=== PATIENT | female | born 1975 | race African-American/Black ===

== ENCOUNTER 2016-10-23 14:19 | Inpatient (IN) ==
--- NOTE | 2016-10-23 18:34 | Emergency Department Note ---
Disposition Clinical Impression: Shortness of breath Disposition: Still a Patient Condition: Undetermined Referrals: Dago Milton DO [Primary Care Provider] - Forms: ED Satisfaction Letter Time of Disposition: 19:03 General Adult HPI - General Chief complaint: ED Recheck/Abnormal Lab/Rx Stated complaint: abnormal labs per PCP Time Seen by Provider: 10/23/16 18:11 Source: patient Mode of arrival: ambulatory Limitations: no limitations Nursing Notes Reviewed: Yes Vital Signs Reviewed: Yes - History of Present Illness HPI Narrative: Mr. Mercedes is a 41 year old female sent to the ED by PCP for abnormal lab. Patient reports one week of shortness of breath, dry mouth, fatigue, nausea, increased urination, increased thirst, burning with urination, decreased appetite, weight loss. She reports history of asthma for which she is on Advair , she is also supposed to be on the Ventolin inhaler but currently having issues with insurance. PMHx also includes hypertension, 192/132 in the ED, she takes metoprolol and losartan. Patient notes that she has been out of losartan for 2 weeks. Patient denies history of diabetes, noting elevated glucose once that resolved, though bloodwork today HGB A1C 11.5. Patient denies any medication for glucose control. Labs today also noted patient to have an elevated white count at 14.5 and a low bicarb at 8. Patient notes recent travel [id number], denies symptoms prior to travel. Patient denies vomiting, fever, blood in urine or stool. Pt Subjective Complaint: shortness of breath, fatigue Onset (ago): day(s) Pain Scale: 0 Associated symptoms: Reports: loss of appetite, nausea/vomiting, shortness of breath Treatments Prior to Arrival: other (singulair, advair) - Related Data Home Medications Medication Instructions Recorded Confirmed Albuterol Inhaler 06/09/15 06/09/15 Lorsartan 06/09/15 06/09/15 Metoprolol 06/09/15 06/09/15 Advair 100-50 Diskus 09/05/16 Augmentin 09/05/16 Flonase 09/05/16 09/05/16 Previous Rx's Medication Instructions Recorded Cefdinir [Omnicef] 300 mg PO BID #20 capsule 09/05/16 Ibuprofen [Motrin] 800 mg PO Q8HR PRN #20 tablet 09/05/16 Meclizine [Antivert] 12.5 mg PO TID PRN #10 tablet 09/05/16 Magnus/Poly/HC *EAR* SOLN 4 drop RIGHT EAR QID 7 Days 09/05/16 [Cortisporin *EAR* SOLN] PredniSONE 5 mg PO DAILY 12 Days 09/05/16 Allergies Allergy/AdvReac Type Severity Reaction Status Date / Time shellfish derived Allergy Swelling Verified 10/23/16 14:31 of Lip/Tongue/Throat Sulfa (Sulfonamide Allergy Hives Verified 10/23/16 14:30 Antibiotics) All systems ED: reviewed and negative except as stated. Constitutional: Reports: weight change Cardiovascular: Denies: chest pain, palpitations, edema Respiratory: Reports: dyspnea Gastrointestinal: Reports: nausea. Denies: abdominal pain, vomiting, diarrhea, constipation, melena, hematochezia Genitourinary: Reports: urgency, dysuria (burning), frequency Endocrine: Reports: fatigue, polydipsia, polyuria Past Medical History - Past Medical History Attestation: Yes The following information was validated with the patient. Source: patient, old records reviewed Medical history: Reports: asthma, hypertension, RA, other - Social History Smoking Status: Never smoker Smokeless Tobacco Status: No Alcohol use: Reports: occasionally Drug use: Reports: none Physical Exam - General Limitations: no limitations General appearance: alert - Head Head exam: atraumatic, normocephalic - Eye Eye exam: Present: normal appearance, EOMI - ENT ENT exam: normal exam, mucous membranes moist - Neck Neck exam: Present: normal inspection, full ROM - Chest Chest inspection: Present: normal inspection, symmetric chest wall rise - Respiratory Respiratory exam: Present: normal lung sounds bilaterally. Absent: wheezes, stridor - Cardiovascular Cardiovascular exam: Present: tachycardia, +S1, +S2 - Abdominal Exam Abdominal exam: Present: soft, Non-Tender, normal bowel sounds. Absent: distention, guarding, rebound - Extremities Exam Extremities exam: Present: normal inspection, full ROM. Absent: tenderness, pedal edema - Neurological Exam Neurological exam: Present: alert, oriented X3 - Psychiatric Psychiatric exam: Present: normal affect, normal mood - Skin Skin exam: Present: warm, dry, intact Course Vital Signs Temperature 97.8 F 10/23/16 14:27 Pulse Rate 114 10/23/16 14:27 Respiratory Rate 20 10/23/16 14:27 Blood Pressure 192/134 10/23/16 14:27 O2 Sat by Pulse Oximetry 97 10/23/16 14:27 Temperature 97.8 F 10/23/16 14:27 Pulse Rate 109 10/23/16 18:23 Respiratory Rate 16 10/23/16 18:23 Blood Pressure 198/120 10/23/16 18:23 O2 Sat by Pulse Oximetry 99 10/23/16 18:23 Oxygen Delivery Oxygen Delivery Room Air Medical Decision Making - Medical Records Medical records reviewed: Yes I reviewed the patient's medical records. - Lab Data Lab results reviewed: Yes I reviewed the patient's lab results. Result diagrams: 10/23/16 18:47 Lab Results 10/23/16 Range/Units 18:47 WBC 15.0 H (4.3-11.1) K/mcL RBC 5.49 H (3.82-4.97) M/mcL Hgb 12.8 (11.5-15.4) g/dL Hct 40.2 (35.3-44.9) % MCV 73.2 L (83.0-100.0) fL MCH 23.3 L (28.0-33.3) pg MCHC 31.8 (31.6-35.5) g/dL RDW 18.7 H (11.5-14.5) % Plt Count 404 H (140-400) K/mcL MPV 10.8 (9.4-12.4) fL Immature Gran % 0.8 (0-4) % Seg Neutrophils % 71.8 % Lymphocytes % 17.7 % Monocytes % 8.6 % Eosinophils % 0.6 % Basophils % 0.5 % Neutrophils # 10.8 H (1.6-8.9) K/mcL Lymphocytes # 2.7 (0.6-4.6) K/mcL Monocytes # 1.3 (0.0-1.3) K/mcL Eosinophils # 0.1 (0.0-0.6) K/mcL Basophils # 0.1 (0.0-0.2) K/mcL - EKG Data EKG #1 EKG attestation: Yes I reviewed and interpreted this EKG. EKG shows normal: sinus rhythm Rate: tachycardia When compared to previous EKG there are: previous EKG unavailable
[2016-10-23] MEDS ORDERED: Ipratropium/Albuterol Neb 3 ML IH ONE (18:39)
[2016-10-23 18:53] LABS: Eosinophils % 0.6 %; Hematocrit 40.2 % (35.3-44.9); Hemoglobin 12.8 g/dL (11.5-15.4); Immature Granulocytes % 0.8 % (0-4); Lymphocytes % 17.7 %; Mean Corpuscular HGB Conc 31.8 g/dL (31.6-35.5); Mean Corpuscular Hemoglobin 23.3 pg (28.0-33.3); Mean Corpuscular Volume 73.2 fL (83.0-100.0); Mean Platelet Volume 10.8 fL (9.4-12.4); Monocytes % 8.6 %; Platelet Count 404 K/mcL (140-400); Red Blood Count 5.49 M/mcL (3.82-4.97); Red Cell Distribution Width 18.7 % (11.5-14.5); Segmented Neutrophils % 71.8 %
[2016-10-23 18:54] LABS: Basophils # 0.1 K/mcL (0.0-0.2); Basophils % 0.5 %; Eosinophils # 0.1 K/mcL (0.0-0.6); Lymphocytes # 2.7 K/mcL (0.6-4.6); Monocytes # 1.3 K/mcL (0.0-1.3); Neutrophils # 10.8 K/mcL (1.6-8.9)
[2016-10-23 19:06] LABS: BUN/Creatinine Ratio 7 (6-26); Blood Urea Nitrogen 8 mg/dL (7-20); Calcium 9.8 mg/dL (8.6-10.8); Carbon Dioxide 12 mEq/L (19-29); Chloride 104 mEq/L (98-109); Osmolality,Calculated 305 (280-300); Sodium 134 mEq/L (136-145); eGFR For African Americans 59 (> 60); eGFR For Non-African Americans 48 (> 60)
[2016-10-23 19:16] LABS: Potassium 3.3 mEq/L (3.5-4.5)
[2016-10-23 19:18] LABS: Glucose 607 mg/dL (70-99)
[2016-10-23] MEDS ORDERED: 0.9 % Sodium Chloride 1,000 ML IVC ONE (19:24)
[2016-10-23 19:38] LABS: Beta-Hydroxybutyric Acid > 2.00 mmol/L (0.02-0.27)
[2016-10-23 19:47] LABS: ABG Base Excess -11.4 mEq/L (-2.0 to 3.0); ABG HCO3 12.4 mEQ/L (21-27); ABG Oxygen Saturation 97 % (95-98); ABG PCO2 23 mmHg (35-45); ABG PH 7.34 pH Units (7.32-7.45); ABG PO2 94 mmHg (85-104); ABG TCO2 13.1 mEq/L (20-26)
[2016-10-23 19:47] LABS: Bilirubin,Urine Negative (Negative); Blood,Urine Negative (Negative); Clarity,Urine Clear (Clear); Color,Urine Yellow (Yellow); Glucose,Urine (UA) >=1000 mg/dL (Normal); Ketones,Urine 40 mg/dL (Negative); Leukocyte Esterase,Urine Negative (Negative); Nitrite,Urine Negative (Negative); Protein,Urine Negative (Neg-Trace); Specific Gravity,Urine > 1.030 (1.010-1.025); Urobilinogen,Urine Normal (Normal)
[2016-10-23 19:49] LABS: Blood Gas FiO2 21 %
[2016-10-23] MEDS: 0.9 % Sodium Chloride 1,000 ML IVC SCH ×2 (21:08→22:29)
[2016-10-23] MEDS ORDERED: *HR* Dextrose 50 % in Water (Syg) 50 ML SYRINGE IVP PRN ×2 (21:11→23:15)
[2016-10-23] MEDS ORDERED: Insulin Regular, Human 100 UNIT/ML IV ONE (21:11)
[2016-10-23] MEDS ORDERED: Insulin Human Regular 100 UNIT in 0.9 % Sodium Chloride 100 ML IVC SCH ×2 (21:15→23:15)
--- NOTE | 2016-10-23 21:17 | Emergency Department Note ---
Disposition Clinical Impression: Shortness of breath, KAILEE (acute kidney injury) DKA (diabetic ketoacidoses) Qualifiers: Diabetes mellitus type: other specified (including CANDELARIA) Diabetes mellitus complication detail: without coma Qualified Code(s): E13.10 - Other specified diabetes mellitus with ketoacidosis without coma Disposition: Admitted As Inpatient Condition: Fair Referrals: Dago Milton DO [Primary Care Provider] - Forms: ED Satisfaction Letter Time of Disposition: 21:19 General Adult HPI - General Chief complaint: ED Recheck/Abnormal Lab/Rx Stated complaint: abnormal labs per PCP Time Seen by Provider: 10/23/16 18:11 Source: patient Mode of arrival: ambulatory Limitations: no limitations - History of Present Illness Pain Scale: 0 Associated symptoms: Reports: loss of appetite, nausea/vomiting, shortness of breath Treatments Prior to Arrival: other (singulair, advair) - Related Data Home Medications Medication Instructions Recorded Confirmed Adalimumab [Humira] 40 mg SQ Q2W 10/23/16 Albuterol Sulfate [Ventolin Hfa] 2 puff IH Q4H PRN 10/23/16 10/23/16 Fluticasone Propionate Nasal 50 mcg NS BID PRN 10/23/16 10/23/16 [Flonase] Losartan/Hydrochlorothiazide 1 each PO DAILY 10/23/16 10/23/16 [Hyzaar 100-25 Tablet] Metoprolol [Lopressor] 25 mg PO DAILY 10/23/16 10/23/16 Montelukast [Singulair] 10 mg PO HS 10/23/16 10/23/16 PredniSONE 20 mg PO DAILY 10/23/16 10/23/16 Allergies Allergy/AdvReac Type Severity Reaction Status Date / Time shellfish derived Allergy Swelling Verified 10/23/16 14:31 of Lip/Tongue/Throat Sulfa (Sulfonamide Allergy Hives Verified 10/23/16 14:30 Antibiotics) Constitutional: Reports: weight change Cardiovascular: Denies: chest pain, palpitations, edema Respiratory: Reports: dyspnea Gastrointestinal: Reports: nausea. Denies: abdominal pain, vomiting, diarrhea, constipation, melena, hematochezia Genitourinary: Reports: urgency, dysuria (burning), frequency Endocrine: Reports: fatigue, polydipsia, polyuria Past Medical History - Past Medical History Medical history: Reports: asthma, hypertension, RA, other - Social History Smoking Status: Never smoker Smokeless Tobacco Status: No Alcohol use: Reports: occasionally Drug use: Reports: none Physical Exam - General Limitations: no limitations General appearance: alert Course Course Narrative: Assumed care from day team. Patient with hyperglycemia and found to have Hgb A1c of 11.5 today. New diagnosis of diabetes. Workup for DKA in progress. Patient has had difficulty breathing though this may be more related to her DKA. Patient has no risk factors for home and her embolus. Her oxygen saturations are 99% on room air. - Reevaluation(s) Reevaluation #1: Lab work does show elevated beta hydroxybutyric acid of greater than 2. She is slightly acidotic with a pH of 7.34 along with an anion gap of 18. Patient just has not been feeling good and has had frequent urination. I spoke with her about her diagnosis of diabetes and DKA. Patient agrees with admission to the hospital. I spoke with hospitalist Dr. Ramos who has accepted patient for admission. Would like patient started on an insulin drip as well as a initial insulin bolus of 5 units. Time: 21:16 Vital Signs Temperature 97.8 F 10/23/16 14:27 Pulse Rate 114 10/23/16 14:27 Respiratory Rate 20 10/23/16 14:27 Blood Pressure 192/134 10/23/16 14:27 O2 Sat by Pulse Oximetry 97 10/23/16 14:27 Temperature 97.8 F 10/23/16 14:27 Pulse Rate 102 10/23/16 21:23 Respiratory Rate 16 10/23/16 21:23 Blood Pressure 181/116 10/23/16 21:23 O2 Sat by Pulse Oximetry 99 10/23/16 21:23 Oxygen Delivery Oxygen Delivery Room Air Medical Decision Making - Medical Records Medical records reviewed: Yes I reviewed the patient's medical records. - Lab Data Lab results reviewed: Yes I reviewed the patient's lab results. Result diagrams: 10/23/16 18:47 10/23/16 18:47 Lab Results 10/23/16 10/23/16 10/23/16 Range/Units 18:47 18:47 18:47 WBC 15.0 H (4.3-11.1) K/mcL RBC 5.49 H (3.82-4.97) M/mcL Hgb 12.8 (11.5-15.4) g/dL Hct 40.2 (35.3-44.9) % MCV 73.2 L (83.0-100.0) fL MCH 23.3 L (28.0-33.3) pg MCHC 31.8 (31.6-35.5) g/dL RDW 18.7 H (11.5-14.5) % Plt Count 404 H (140-400) K/mcL MPV 10.8 (9.4-12.4) fL Immature Gran % 0.8 (0-4) % Seg Neutrophils % 71.8 % Lymphocytes % 17.7 % Monocytes % 8.6 % Eosinophils % 0.6 % Basophils % 0.5 % Neutrophils # 10.8 H (1.6-8.9) K/mcL Lymphocytes # 2.7 (0.6-4.6) K/mcL Monocytes # 1.3 (0.0-1.3) K/mcL Eosinophils # 0.1 (0.0-0.6) K/mcL Basophils # 0.1 (0.0-0.2) K/mcL D-Dimer 530 H (0-500) ng/mLFEU ABG pH (7.32-7.45) pH Units ABG pCO2 (35-45) mmHg ABG pO2 (85-104) mmHg ABG HCO3 (21-27) mEQ/L ABG Total CO2 (20-26) mEq/L ABG O2 Saturation (95-98) % ABG Base Excess (-2.0 to 3.0) mEq/L Blood Gas Modality Inspired O2 % Sodium 134 L (136-145) mEq/L Potassium 3.3 L D (3.5-4.5) mEq/L Chloride 104 (98-109) mEq/L Carbon Dioxide 12 L (19-29) mEq/L BUN 8 (7-20) mg/dL Creatinine 1.22 H (0.57-1.11) mg/dL Est GFR ( Amer) 59 L (> 60) Est GFR (Non-Af Amer) 48 L (> 60) BUN/Creatinine Ratio 7 (6-26) Glucose 607 H* (70-99) mg/dL POC Glucose (58-89) Calculated Osmolality 305 H (280-300) Calcium 9.8 (8.6-10.8) mg/dL Beta-Hydroxybutyric Acd > 2.00 H (0.02-0.27) mmol/L Urine Color (Yellow) Urine Clarity (Clear) Urine pH (5.0-8.0) pH Units Ur Specific [place] (1.010-1.025) Urine Protein (Neg-Trace) mg/dL Urine Glucose (UA) (Normal) mg/dL Urine Ketones (Negative) mg/dL Urine Blood (Negative) Urine Nitrite (Negative) Urine Bilirubin (Negative) Urine Urobilinogen (Normal) mg/dL Ur Leukocyte Esterase (Negative) Ur Culture Indicated? (NO) 10/23/16 10/23/16 10/23/16 Range/Units 19:24 19:35 21:16 WBC (4.3-11.1) K/mcL RBC (3.82-4.97) M/mcL Hgb (11.5-15.4) g/dL Hct (35.3-44.9) % MCV (83.0-100.0) fL MCH (28.0-33.3) pg MCHC (31.6-35.5) g/dL RDW (11.5-14.5) % Plt Count (140-400) K/mcL MPV (9.4-12.4) fL Immature Gran % (0-4) % Seg Neutrophils % % Lymphocytes % % Monocytes % % Eosinophils % % Basophils % % Neutrophils # (1.6-8.9) K/mcL Lymphocytes # (0.6-4.6) K/mcL Monocytes # (0.0-1.3) K/mcL Eosinophils # (0.0-0.6) K/mcL Basophils # (0.0-0.2) K/mcL D-Dimer (0-500) ng/mLFEU ABG pH 7.34 (7.32-7.45) pH Units ABG pCO2 23 L (35-45) mmHg ABG pO2 94 (85-104) mmHg ABG HCO3 12.4 L (21-27) mEQ/L ABG Total CO2 13.1 L (20-26) mEq/L ABG O2 Saturation 97 (95-98) % ABG Base Excess -11.4 L (-2.0 to 3.0) mEq/L Blood Gas Modality RA Inspired O2 21 % Sodium (136-145) mEq/L Potassium (3.5-4.5) mEq/L Chloride (98-109) mEq/L Carbon Dioxide (19-29) mEq/L BUN (7-20) mg/dL Creatinine (0.57-1.11) mg/dL Est GFR ( Amer) (> 60) Est GFR (Non-Af Amer) (> 60) BUN/Creatinine Ratio (6-26) Glucose (70-99) mg/dL POC Glucose 329 H (58-89) Calculated Osmolality (280-300) Calcium (8.6-10.8) mg/dL Beta-Hydroxybutyric Acd (0.02-0.27) mmol/L Urine Color Yellow (Yellow) Urine Clarity Clear (Clear) Urine pH 6.0 (5.0-8.0) pH Units Ur Specific [place] > 1.030 H (1.010-1.025) Urine Protein Negative (Neg-Trace) mg/dL Urine Glucose (UA) >=1000 H (Normal) mg/dL Urine Ketones 40 H (Negative) mg/dL Urine Blood Negative (Negative) Urine Nitrite Negative (Negative) Urine Bilirubin Negative (Negative) Urine Urobilinogen Normal (Normal) mg/dL Ur Leukocyte Esterase Negative (Negative) Ur Culture Indicated? NO (NO) - Radiology Data Radiology results reviewed: Yes I reviewed the patient's radiology results. Chest X-Ray 10/23/16 18:39 IMPRESSION: No acute cardiopulmonary disease. D/ / Paras Blunt MD / Paras Blunt MD Interpreting Provider: Paras Blunt MD - EKG Data EKG #1 EKG attestation: Yes I reviewed and interpreted this EKG. EKG results narrative: EKG done at 1753 shows sinus tachycardia with a rate of 139 beats per minute. No acute ST elevation or depression. There is a poor wandering baseline. No prior EKG for comparison. Critical Care Time Critical Care Time: Yes Total Critical Care Time: 45 Attestation: Critical care performed: Time is exclusive of separately billable procedures. Time includes: direct patient care, patient reassessment, coordination of patient care, interpretation of data (laboratory data, radiology data, and respiratory data), review of patient's medical records, medical consultation and documentation of patient care. Procedures included in critical care time: Procedures excluded from critical care time: Attestation Statement - Attestation Attestation: I, Lazaro Mckenzie MD, personally performed a history and physical exam of the patient and discussed their management with the resident. I reviewed the resident's note and agree with the documented findings, medical decision making , and plan of care. This patient was signed out at shift change from Dr. kahn and Dr. Hurd. Please refer to their notes for complete details of history and physical examination. Patient was referred in from her PCP after she had some lab work earlier today with some lab abnormalities. She was found to have elevated glucose and a CO2 of 8. Patient has no prior history of diabetes. Diabetes runs in the family. Her mother is diabetic. She complains over the past week she has just felt fatigued and weak and tired. She has had increased urination and increased thirst. Some shortness of breath. Examination Patient Is a Well-Developed Well-Nourished Female in No Acute Distress. She Is Alert and Oriented 3. There Is No Cyanosis or Diaphoresis. Rest Sounds Are Clear and Equal Bilaterally. Heart Regular with a Mild Tachycardia. Abdomen Is Soft and Nontender with Normal Bowel Sounds. Labs reviewed. Glucose 607, CO2 12, creatinine 1.22, potassium 3.3. D-dimer was also elevated at 5:30. Chest x-ray negative. Serum ketones positive. Arterial pH 7.34. Patient received IV bolus and fluids. Repeat potassium and started on insulin. Hospitalist, Dr. Ramos, was consulted and accepted admission of the patient.
[2016-10-23 22:58] LABS: BUN/Creatinine Ratio 7 (6-26); Blood Urea Nitrogen 6 mg/dL (7-20); Calcium 8.1 mg/dL (8.6-10.8); Carbon Dioxide 12 mEq/L (19-29); Chloride 110 mEq/L (98-109); Glucose 281 mg/dL (70-99); Osmolality,Calculated 292 (280-300); Potassium 3.2 mEq/L (3.5-4.5); Sodium 137 mEq/L (136-145); eGFR For African Americans > 60 (> 60); eGFR For Non-African Americans > 60 (> 60)
[2016-10-23] MEDS ORDERED: Fluticasone Propionate Nasal 50 MCG/SPRAY BOTTLE NS PRN (23:12)
[2016-10-23] MEDS ORDERED: Acetaminophen 325 MG TABLET PO PRN (23:13)
[2016-10-23] MEDS ORDERED: Ondansetron 4 MG/2 ML VIAL IVP PRN (23:13)
[2016-10-23] MEDS ORDERED: Naloxone 0.4 MG/ML INJ IVP PRN (23:13)
[2016-10-23] MEDS ORDERED: 0.45 % Sodium Chloride w/KCl 20 MEQ/1,000 ML MLS IVC PRN (23:15)
[2016-10-23] MEDS ORDERED: Insulin Regular, Human 100 UNIT/ML IV PRN (23:15)
--- NOTE | 2016-10-23 23:59 | Internal Med History&Physical ---
Date of Encounter: 10/23/16 Time of Encounter: 23:58 Assessment and Plan (1) Metabolic acidosis Current visit: Yes Status: Acute We will treat her with IV fluids and insulin drip. Monitor venous blood gas every 4 hours. (2) Bronchial asthma Current visit: Yes Status: Acute Inhaled albuterol as needed. Qualifiers: Asthma severity: mild intermittent Asthma complication type: uncomplicated Qualified Code(s): J45.20 - Mild intermittent asthma, uncomplicated (3) Rheumatoid arthritis Current visit: Yes Status: Acute I will stop the prednisone for now. We will treat her with NSAIDs as needed. Qualifiers: Rheumatoid arthritis location: unspecified site Rheumatoid factor presence : unspecified presence Qualified Code(s): M06.9 - Rheumatoid arthritis, unspecified (4) DVT prophylaxis Current visit: Yes Status: Acute Encourage early ambulation. She does not require pharmacological prophylaxis. (5) DKA (diabetic ketoacidoses) Current visit: Yes Status: Acute Allergies a bolus of IV insulin. We will start insulin drip per protocol. Check glucose every 1 hour. Check and replete electrolytes. We will start Levemir insulin once the anion gap has closed. We will check C-peptide to confirm that diagnosis type 1 diabetes. She is a high risk for morbidity complications due to IV insulin which requires every hour glucose checks. Qualifiers: Diabetes mellitus type: type 1 Diabetes mellitus complication detail: without coma Qualified Code(s): E10.10 - Type 1 diabetes mellitus with ketoacidosis without coma (6) KAILEE (acute kidney injury) Current visit: Yes Status: Acute IV fluids. Monitor BUN/creatinine. Internal Medicine - H&P: HPI Chief complaint: Dyspnea on exertion Admitted From: Emergency Dept Plans for Post Hospital Care: Home History of present illness: Ms. Mercedes is a 41 year old female with past medical history significant for asthma and rheumatoid arthritis presented to the hospital for generalized weakness and shortness of breath with minimal exertion. Her symptoms have gotten progressively worse over the last 3 days. She also noted associated polyuria and increased thirst. She noted a 30 pound weight loss in the last 2 months. She was evaluated by her PCP and was told that her glucose was elevated and was referred to the hospital for further evaluation. In the emergency department her glucose levels 607. She was given IV fluids and referred for admission. A 10 point review of systems was performed pertinent positives per history of present illness and additionally positive for joint aches and pains secondary to rheumatoid arthritis otherwise negative Past medical history as above Family history pertinent for insulin-dependent diabetes in the patient's mother Social history the patient denies tobacco alcohol and drug use she works as a home health nurse. Past Med Surg Social Fam HX - Past Medical History Medical history: asthma, hypertension, RA, other - Social History Smoking Status: Never smoker Smokeless Tobacco Status: No Alcohol use: occasionally Drug use: none - Family History Mother Living Status: Still Living Hx Family Endocrine Disorder: Yes (diabetes) Internal Medicine - H&P: Meds Adalimumab [Humira] 40 mg SQ Q2W 10/23/16 [History] Albuterol Sulfate [Ventolin Hfa] 2 puff IH Q4H PRN 10/23/16 [History] Fluticasone Propionate Nasal [Flonase] 50 mcg NS BID PRN 10/23/16 [History] Losartan/Hydrochlorothiazide [Hyzaar 100-25 Tablet] 1 each PO DAILY 10/23/16 [ History] Metoprolol [Lopressor] 25 mg PO DAILY 10/23/16 [History] Montelukast [Singulair] 10 mg PO HS 10/23/16 [History] PredniSONE 20 mg PO DAILY 10/23/16 [History] Allergies shellfish derived Allergy (Verified 10/23/16 14:31) Swelling of Lip/Tongue/Throat Sulfa (Sulfonamide Antibiotics) Allergy (Verified 10/23/16 14:30) Hives All Systems PM: A 10-system review of systems was performed and is negative for pertinent findings except as documented above in the HPI. - Constitutional Vitals: Temp Pulse Resp BP Pulse Ox 97.8 F 105 16 174/111 100 10/23/16 14:27 10/23/16 23:38 10/23/16 23:38 10/23/16 23:38 10/23/16 23:38 - Eye Eye exam: Present: PERRL, conjuntiva pink, sclera anicteric Pupils: Present: PERRL - Respiratory Respiratory exam: Present: CTAB. Absent: accessory muscle use, rales, rhonchi, wheezes - Cardiovascular Cardiovascular exam: Present: +S1, +S2, tachycardia. Absent: diastolic murmur, gallop, rubs, systolic murmur - GI/Abdominal GI/Abdominal exam: Present: normal bowel sounds, soft, no peritoneal signs. Absent: distended, tenderness - Extremities Exam Extremities exam: Present: warm, radial pulses palpable and symetrical. Absent : calf tenderness, cyanotic, pedal edema - Neurological Exam Neurological exam: Present: CN II-XII intact, oriented X3, no focal deficits. Absent: pronater drift, facial droop, speech deficit - Skin Skin exam: Present: dry, intact Internal Med - H&P Results - Labs CBC & Chem 7: 10/23/16 18:47 10/23/16 22:36 Labs: Per chart review her glucose level in the office earlier today was 329 and her sodium bicarbonate was 8. Her anion gap was 16 at that time. BMP 10/23/16 22:36 Sodium 137 Potassium 3.2 L Chloride 110 H Carbon Dioxide 12 L BUN 6 L Creatinine 0.86 Glucose 281 H Calcium 8.1 L D Per chart review hemoglobin A1c today in the office was 11.8.
[2016-10-24] MEDS ORDERED: D5% in 0.45% NACL 1,000 ML IVC PRN (00:49)
[2016-10-24] MEDS ORDERED: 0.9 % Sodium Chloride 1,000 ML IVC PRN (00:55)
[2016-10-24] MEDS ORDERED: Albuterol 2.5 MG/3 ML NEBULIZER IH PRN (01:00)
[2016-10-24] MEDS ORDERED: D5% in 0.45% NACL w KCl 20 MEQ/1,000 ML MLS IVC ONE (01:01)
[2016-10-24] MEDS: D5% in 0.45% NACL w KCl 20 MEQ/1,000 ML MLS IVC PRN ×2 (01:09→10:21)
[2016-10-24 01:18] LABS: VBG HCO3 14.7 mEq/L (21-27); VBG PH 7.22 pH Units (7.32-7.42)
[2016-10-24 01:46] LABS: Basophils # 0.1 K/mcL (0.0-0.2); Basophils % 0.4 %; Eosinophils # 0.1 K/mcL (0.0-0.6); Hemoglobin 11.1 g/dL (11.5-15.4); Immature Granulocytes % 0.6 % (0-4); Lymphocytes # 2.7 K/mcL (0.6-4.6); Lymphocytes % 21.3 %; Mean Corpuscular HGB Conc 31.7 g/dL (31.6-35.5); Mean Corpuscular Hemoglobin 23.3 pg (28.0-33.3); Mean Corpuscular Volume 73.5 fL (83.0-100.0); Mean Platelet Volume 10.6 fL (9.4-12.4); Monocytes # 1.2 K/mcL (0.0-1.3); Monocytes % 9.4 %; Neutrophils # 8.4 K/mcL (1.6-8.9); Platelet Count 337 K/mcL (140-400); Red Blood Count 4.76 M/mcL (3.82-4.97); Red Cell Distribution Width 17.8 % (11.5-14.5); Segmented Neutrophils % 67.3 %
[2016-10-24 02:02] LABS: BUN/Creatinine Ratio 6 (6-26); Calcium 7.7 mg/dL (8.6-10.8); Carbon Dioxide 13 mEq/L (19-29); Chloride 115 mEq/L (98-109); Glucose 160 mg/dL (70-99); Osmolality,Calculated 289 (280-300); Potassium 2.7 mEq/L (3.5-4.5); Sodium 139 mEq/L (136-145); eGFR For African Americans > 60 (> 60); eGFR For Non-African Americans > 60 (> 60)
[2016-10-24 02:02] LABS: BUN/Creatinine Ratio 7 (6-26); Calcium 7.7 mg/dL (8.6-10.8); Carbon Dioxide 13 mEq/L (19-29); Chloride 116 mEq/L (98-109); Glucose 158 mg/dL (70-99); Magnesium 1.5 mg/dL (1.6-2.6); Osmolality,Calculated 289 (280-300); Potassium 2.7 mEq/L (3.5-4.5); Sodium 139 mEq/L (136-145); eGFR For African Americans > 60 (> 60); eGFR For Non-African Americans > 60 (> 60)
[2016-10-24 02:05] LABS: Blood Urea Nitrogen 5 mg/dL (7-20)
[2016-10-24 02:07] LABS: Blood Urea Nitrogen 5 mg/dL (7-20)
[2016-10-24] MEDS ORDERED: Calcium Gluconate 1,000 MG in D5% in Water 100 ML IVPB PRN (02:48)
[2016-10-24] MEDS ORDERED: Sodium Phosphate 30 MMOL in D5% in Water 100 ML IVPB PRN (02:48)
[2016-10-24] MEDS ORDERED: Potassium Phosphate 44 MEQ in 0.9 % Sodium Chloride 250 ML IVPB PRN (02:48)
[2016-10-24] MEDS: Ibuprofen 600 MG TABLET PO PRN ×2 (03:03→08:31)
[2016-10-24 05:46] LABS: Hemoglobin A1C 11.9 %
[2016-10-24 05:46] LABS: Basophils # 0.1 K/mcL (0.0-0.2); Basophils % 0.6 %; Eosinophils # 0.2 K/mcL (0.0-0.6); Eosinophils % 1.3 %; Hematocrit 30.6 % (35.3-44.9); Hemoglobin 9.9 g/dL (11.5-15.4); Immature Granulocytes % 0.7 % (0-4); Lymphocytes # 2.7 K/mcL (0.6-4.6); Lymphocytes % 20.8 %; Mean Corpuscular HGB Conc 32.4 g/dL (31.6-35.5); Mean Corpuscular Hemoglobin 23.7 pg (28.0-33.3); Mean Corpuscular Volume 73.4 fL (83.0-100.0); Mean Platelet Volume 11.1 fL (9.4-12.4); Monocytes # 1.6 K/mcL (0.0-1.3); Monocytes % 12.7 %; Neutrophils # 8.1 K/mcL (1.6-8.9); Platelet Count 303 K/mcL (140-400); Red Blood Count 4.17 M/mcL (3.82-4.97); Red Cell Distribution Width 17.9 % (11.5-14.5); Segmented Neutrophils % 63.9 %
[2016-10-24 05:57] LABS: VBG HCO3 14.2 mEq/L (21-27); VBG PH 7.33 pH Units (7.32-7.42)
[2016-10-24 06:07] LABS: BUN/Creatinine Ratio 7 (6-26); Calcium 7.6 mg/dL (8.6-10.8); Carbon Dioxide 13 mEq/L (19-29); Chloride 114 mEq/L (98-109); Glucose 169 mg/dL (70-99); Magnesium 1.2 mg/dL (1.6-2.6); Osmolality,Calculated 283 (280-300); Phosphorous 1.1 mg/dL (2.3-4.7); Potassium 3.3 mEq/L (3.5-4.5); Sodium 136 mEq/L (136-145); eGFR For African Americans > 60 (> 60); eGFR For Non-African Americans > 60 (> 60)
[2016-10-24] MEDS: Famotidine 20 MG/2 ML VIAL IVP SCH ×2 (06:08→17:05)
[2016-10-24 06:12] LABS: Blood Urea Nitrogen 5 mg/dL (7-20)
[2016-10-24] MEDS: Magnesium Sulfate 2 GM in D5% in Water 100 ML IVPB PRN (06:37)
[2016-10-24] MEDS ORDERED: Magnesium Sulfate 2 GM in D5% in Water 100 ML IVPB ONE (07:32)
[2016-10-24] MEDS ORDERED: Potassium Phosphate 44 MEQ in 0.9 % Sodium Chloride 250 ML IVPB ONE (07:32)
[2016-10-24 07:34] LABS: Ionized Calcium 1.09 mmol/L (1.15-1.35)
[2016-10-24] MEDS: Losartan/HCTZ 50-12.5 TABLET PO SCH (08:30)
[2016-10-24] MEDS: predniSONE 20 MG TABLET PO SCH (08:31)
[2016-10-24 09:52] LABS: VBG HCO3 24.1 mEq/L (21-27); VBG PH 7.3 pH Units (7.32-7.42)
[2016-10-24 09:55] LABS: Ionized Calcium 1.08 mmol/L (1.15-1.35)
[2016-10-24 10:32] LABS: BUN/Creatinine Ratio 6 (6-26); Calcium 7.7 mg/dL (8.6-10.8); Carbon Dioxide 20 mEq/L (19-29); Chloride 109 mEq/L (98-109); Glucose 177 mg/dL (70-99); Osmolality,Calculated 287 (280-300); Phosphorous 1.2 mg/dL (2.3-4.7); Potassium 3.1 mEq/L (3.5-4.5); Sodium 138 mEq/L (136-145); eGFR For African Americans > 60 (> 60); eGFR For Non-African Americans > 60 (> 60)
[2016-10-24 10:33] LABS: Blood Urea Nitrogen 4 mg/dL (7-20)
[2016-10-24] MEDS ORDERED: Insulin DETEMIR 100 UNIT/ML X5UNITS SQ SCH (10:45)
--- NOTE | 2016-10-24 11:26 | Internal Med Progress Note ---
Date of Encounter: 10/24/16 Time of Encounter: 11:22 - Assessment and plan (1) DKA (diabetic ketoacidoses) Current Visit: Yes Status: Acute Assessment and plan: DKA resolved Will start Levemir 18units sq qd (since patient is insulin naive, will start at 0.2mg/Kg SQ) family living educator consultation requested HbA1C: 11.9 Will d/c insulin drip an hour after patient receiving Levemir and IV fluids ADA diet Sliding scale insulin algorithm Will closely monitor fingerstick and blood glucose Qualifiers: Diabetes mellitus type: type 1 Diabetes mellitus complication detail: without coma Qualified Code(s): E10.10 - Type 1 diabetes mellitus with ketoacidosis without coma (2) Diabetes mellitus Current Visit: Yes Status: Acute Assessment and plan: Newly diagnosed DM during this hospitalization Plan as listed above awaiting C-peptide results Qualifiers: Diabetes mellitus type: other specified (including CANDELARIA) Diabetes mellitus complication status: with unspecified complications Diabetes mellitus usp insulin use: without rodent exterminator use Qualified Code(s): E13.8 - Other specified diabetes mellitus with unspecified complications (3) KAILEE (acute kidney injury) Current Visit: Yes Status: Resolved Assessment and plan: Resolved will continue to monitor (4) Metabolic acidosis Current Visit: Yes Status: Resolved Assessment and plan: Likely secondary to DKA, resolved at this time (5) Rheumatoid arthritis Current Visit: Yes Status: Chronic Assessment and plan: Continue home medications including Prednisone Qualifiers: Rheumatoid arthritis location: unspecified site Rheumatoid factor presence : unspecified presence Qualified Code(s): M06.9 - Rheumatoid arthritis, unspecified (6) DVT prophylaxis Current Visit: Yes Status: Acute Assessment and plan: Heparin SQ - Subjective Interval history: Patient is a 41y/o female admitted for hyperglycemia secondary to DKA. Seen and examined at bedside. Sitting comfortably in bed and reports of feeling significantly better compared to the previous day. States she was told she was a prediabetic years ago but never followed up. at this time patient's DKA has resolved. She is tolerating PO intake well. Denies any n/v, or any discomfort at this time. - Constitutional Vitals: Temp Pulse Resp BP Pulse Ox 97.2 F L 102 16 152/95 97 10/24/16 11:13 10/24/16 11:13 10/24/16 11:13 10/24/16 11:13 10/24/16 11:13 General appearance: Present: A&O X 3, no acute distress, obese, answers questions appropriately - Head Head exam: Present: atraumatic, normocephalic - Eye Eye exam: Present: normal appearance, conjuntiva pink, sclera anicteric - Respiratory Respiratory exam: Present: CTAB. Absent: accessory muscle use, rales, rhonchi, wheezes - Cardiovascular Cardiovascular exam: Present: RRR, +S1, +S2. Absent: diastolic murmur, gallop, rubs, systolic murmur - GI/Abdominal GI/Abdominal exam: Present: normal bowel sounds, soft, no peritoneal signs. Absent: distended, tenderness - Extremities Exam Extremities exam: Present: warm, radial pulses palpable and symetrical. Absent : calf tenderness, cyanotic, pedal edema - Neurological Exam Neurological exam: Present: alert, oriented X3, no focal deficits. Absent: pronater drift, facial droop, speech deficit - Psychiatric Psychiatric exam: Present: normal affect, normal mood Internal Medicine: Result - Labs CBC & Chem 7: 10/24/16 05:18 10/24/16 08:58 Labs: Short CBC 10/24/16 Range/Units 05:18 WBC 12.7 H (4.3-11.1) K/mcL Hgb 9.9 L (11.5-15.4) g/dL Hct 30.6 L (35.3-44.9) % Plt Count 303 (140-400) K/mcL Neutrophils # 8.1 (1.6-8.9) K/mcL BMP 10/24/16 10/24/16 05:18 08:58 Sodium 136 138 Potassium 3.3 L 3.1 L Chloride 114 H 109 Carbon Dioxide 13 L 20 BUN 5 L 4 L Creatinine 0.67 0.63 Glucose 169 H 177 H Calcium 7.6 L 7.7 L - ABG Interpretation ABG results: ABG ABG pH 7.34 pH Units (7.32-7.45) 10/23/16 19:35 ABG pCO2 23 mmHg (35-45) L 10/23/16 19:35 ABG pO2 94 mmHg (85-104) 10/23/16 19:35 ABG O2 Saturation 97 % (95-98) 10/23/16 19:35 PT/INR, D-dimer D-Dimer 530 ng/mLFEU (0-500) H 10/23/16 18:47 Consult Discharge Plan - Plan Referrals: Dago Milton DO [Primary Care Provider] - (SENT WEB REQUEST ON 10-24-16 @ 1340)
[2016-10-24] MEDS ORDERED: 0.9 % Sodium Chloride 500 ML ONE (14:31)
[2016-10-24] MEDS: *HR* Heparin 5,000 UNIT/ML VIAL SQ SCH ×2 (14:34→20:51)
[2016-10-24] MEDS ORDERED: *HR* Dextrose 50 % in Water (Syg) 50 ML SYRINGE IVP PRN (15:48)
[2016-10-24] MEDS ORDERED: D5% in Water 1,000 ML IVC PRN ×2 (15:48→16:12)
[2016-10-24] MEDS ORDERED: Dextrose Gel 15 GM PO PRN ×2 (15:48)
[2016-10-24] MEDS ORDERED: Insulin LISPRO 300 UNITS/3 ML VIAL SQ SCH ×2 (16:30→21:00)
[2016-10-24 17:17] LABS: Amphetamine Screen,Urine Negative ng/mL (Cutoff=1000); Barbiturate Screen,Urine Negative ng/mL (Cutoff=200); Benzodiazepines Screen,Urine Negative ng/mL (Cutoff=200); Cannabinoid Screen,Urine Negative ng/mL (Cutoff = 50); Cocaine Screen,Urine Negative ng/mL (Cutoff= 300); Opiate Screen,Urine Negative ng/mL (Cutoff=300); Phencyclidine Screen,Urine Negative ng/mL (Cutoff=25)
[2016-10-24 18:56] LABS: Ionized Calcium 1.11 mmol/L (1.15-1.35)
[2016-10-24 19:03] LABS: Potassium 3.9 mEq/L (3.5-4.5)
[2016-10-24 19:04] LABS: Phosphorous 2.6 mg/dL (2.3-4.7)
--- NOTE | 2016-10-24 20:49 | Electrocardiograph Report ---
[place] [id number] Test Date: 2016-10-23 Pat Name: Suresh Mercedes Department: 102 Room: 2N05 Gender: F Women'S Garment Fitter: [facility] : 1975 Requested By: Theo Hurd Order Number: [id number] Reading MD: Jayesh Paredes MD Measurements Intervals [place] Rate: 139 P: 56 LA: 130 QRS: -4 QRSD: 92 T: 81 QT: 329 QTc: 410 Interpretive Statements SINUS TACHYCARDIA WITH OCCASIONAL PVCs LEFT VENTRICULAR HYPERTROPHY AND ST-T CHANGE Electronically Signed On 10-24-2016 20:48:09 EDT by Jayesh Paredes MD
[2016-10-25 05:22] LABS: Basophils % 0.4 %; Eosinophils # 0.1 K/mcL (0.0-0.6); Eosinophils % 1.1 %; Hematocrit 29.5 % (35.3-44.9); Hemoglobin 9.5 g/dL (11.5-15.4); Immature Granulocytes % 0.6 % (0-4); Lymphocytes # 2.2 K/mcL (0.6-4.6); Lymphocytes % 21.8 %; Mean Corpuscular HGB Conc 32.2 g/dL (31.6-35.5); Mean Corpuscular Hemoglobin 23.5 pg (28.0-33.3); Mean Platelet Volume 11.2 fL (9.4-12.4); Monocytes % 10.2 %; Neutrophils # 6.6 K/mcL (1.6-8.9); Platelet Count 285 K/mcL (140-400); Red Blood Count 4.04 M/mcL (3.82-4.97); Red Cell Distribution Width 17.9 % (11.5-14.5); Segmented Neutrophils % 65.9 %
[2016-10-25 05:30] LABS: BUN/Creatinine Ratio 12 (6-26); Blood Urea Nitrogen 9 mg/dL (7-20); Calcium 8.2 mg/dL (8.6-10.8); Carbon Dioxide 22 mEq/L (19-29); Chloride 105 mEq/L (98-109); Glucose 314 mg/dL (70-99); Magnesium 1.8 mg/dL (1.6-2.6); Osmolality,Calculated 293 (280-300); Phosphorous 3.2 mg/dL (2.3-4.7); Potassium 3.3 mEq/L (3.5-4.5); Sodium 136 mEq/L (136-145); eGFR For African Americans > 60 (> 60); eGFR For Non-African Americans > 60 (> 60)
[2016-10-25 05:46] LABS: Ionized Calcium 1.17 mmol/L (1.15-1.35)
[2016-10-25] MEDS: Famotidine 20 MG/2 ML VIAL IVP SCH ×2 (06:17→17:35)
[2016-10-25] MEDS: Magnesium Sulfate 2 GM in D5% in Water 100 ML IVPB PRN (06:19)
[2016-10-25] MEDS: *HR* Heparin 5,000 UNIT/ML VIAL SQ SCH ×3 (06:19→20:57)
[2016-10-25] MEDS: predniSONE 20 MG TABLET PO SCH (08:27)
[2016-10-25] MEDS: Losartan/HCTZ 50-12.5 TABLET PO SCH (08:27)
[2016-10-25] MEDS: Insulin DETEMIR 100 UNIT/ML X5UNITS SQ SCH (08:39)
[2016-10-25] MEDS: Ibuprofen 600 MG TABLET PO PRN ×2 (08:41→21:08)
[2016-10-25] MEDS: Insulin LISPRO 300 UNITS/3 ML VIAL SQ SCH ×6 (09:17→21:00)
[2016-10-25 12:44] LABS: Potassium 3.3 mEq/L (3.5-4.5)
--- NOTE | 2016-10-25 12:49 | Internal Med Progress Note ---
Date of Encounter: 10/24/16 Time of Encounter: 11:50 - Assessment and plan (1) DKA (diabetic ketoacidoses) Current Visit: Yes Status: Resolved Assessment and plan: DKA resolved Qualifiers: Diabetes mellitus type: type 1 Diabetes mellitus complication detail: without coma Qualified Code(s): E10.10 - Type 1 diabetes mellitus with ketoacidosis without coma (2) Diabetes mellitus Current Visit: Yes Status: Acute Assessment and plan: Newly diagnosed DM during this hospitalization Noted to be persistently hyperglycemic Levemir increased to 28units qd Added Lispro 3units SQ TIDAC peer educator consultation requested HbA1C: 11.9 ADA diet Sliding scale insulin algorithm Will closely monitor fingerstick and blood glucose awaiting C-peptide results Qualifiers: Diabetes mellitus type: other specified (including CANDELARIA) Diabetes mellitus complication status: with unspecified complications Diabetes mellitus medical terminologist insulin use: without [facility] use Qualified Code(s): E13.8 - Other specified diabetes mellitus with unspecified complications (3) KAILEE (acute kidney injury) Current Visit: Yes Status: Resolved Assessment and plan: Resolved will continue to monitor (4) Metabolic acidosis Current Visit: Yes Status: Resolved Assessment and plan: Likely secondary to DKA, resolved at this time (5) Rheumatoid arthritis Current Visit: Yes Status: Chronic Assessment and plan: Continue home medications including Prednisone Qualifiers: Rheumatoid arthritis location: unspecified site Rheumatoid factor presence : unspecified presence Qualified Code(s): M06.9 - Rheumatoid arthritis, unspecified (6) DVT prophylaxis Current Visit: Yes Status: Acute Assessment and plan: Heparin SQ (7) Hypokalemia Current Visit: Yes Status: Acute Assessment and plan: K supplemented continue to monitor electrolytes and replace as needed - Subjective Interval history: Patient is a 41y/o female admitted for hyperglycemia secondary to DKA. Seen and examined at bedside. Sitting comfortably in bed and denies any discomfort at this time. She is noted to have persistently elevated blood glucose. Dietary compliance is advised and diabetic education is provided. Discharge pending better control of BG. - Constitutional Vitals: Temp Pulse Resp BP Pulse Ox 98.0 F 80 16 136/90 99 10/25/16 12:24 10/25/16 12:24 10/25/16 12:24 10/25/16 12:24 10/25/16 12:24 General appearance: Present: A&O X 3, no acute distress, obese, answers questions appropriately - Head Head exam: Present: atraumatic, normocephalic - Eye Eye exam: Present: PERRL, conjuntiva pink, sclera anicteric - Respiratory Respiratory exam: Present: CTAB. Absent: accessory muscle use, rales, rhonchi, wheezes - Cardiovascular Cardiovascular exam: Present: RRR, +S1, +S2. Absent: diastolic murmur, gallop, rubs, systolic murmur - GI/Abdominal GI/Abdominal exam: Present: normal bowel sounds, soft, no peritoneal signs. Absent: distended, tenderness - Extremities Exam Extremities exam: Present: warm, radial pulses palpable and symetrical. Absent : calf tenderness, cyanotic, pedal edema - Neurological Exam Neurological exam: Present: alert, oriented X3, no focal deficits - Psychiatric Psychiatric exam: Present: normal affect, normal mood Internal Medicine: Result - Labs CBC & Chem 7: 10/25/16 04:43 10/25/16 12:00 Labs: Short CBC 10/25/16 Range/Units 04:43 WBC 10.0 (4.3-11.1) K/mcL Hgb 9.5 L (11.5-15.4) g/dL Hct 29.5 L (35.3-44.9) % Plt Count 285 (140-400) K/mcL Neutrophils # 6.6 (1.6-8.9) K/mcL BMP 10/24/16 10/25/16 10/25/16 18:25 04:43 12:00 Sodium 136 Potassium 3.9 3.3 L 3.3 L Chloride 105 Carbon Dioxide 22 BUN 9 Creatinine 0.74 Glucose 314 H Calcium 8.2 L - ABG Interpretation ABG results: ABG ABG pH 7.34 pH Units (7.32-7.45) 10/23/16 19:35 ABG pCO2 23 mmHg (35-45) L 10/23/16 19:35 ABG pO2 94 mmHg (85-104) 10/23/16 19:35 ABG O2 Saturation 97 % (95-98) 10/23/16 19:35 PT/INR, D-dimer D-Dimer 530 ng/mLFEU (0-500) H 10/23/16 18:47 Consult Discharge Plan - Plan Referrals: Dago Milton DO [Primary Care Provider] - 11/01/16 12:00 pm ()
[2016-10-26] MEDS: *HR* Heparin 5,000 UNIT/ML VIAL SQ SCH ×3 (05:42→22:15)
[2016-10-26] MEDS: Famotidine 20 MG/2 ML VIAL IVP SCH (05:44)
[2016-10-26 06:08] LABS: Basophils % 0.3 %; Eosinophils # 0.1 K/mcL (0.0-0.6); Eosinophils % 1.1 %; Hematocrit 30.1 % (35.3-44.9); Hemoglobin 9.9 g/dL (11.5-15.4); Immature Granulocytes % 0.6 % (0-4); Lymphocytes # 2.4 K/mcL (0.6-4.6); Lymphocytes % 23.6 %; Mean Corpuscular HGB Conc 32.9 g/dL (31.6-35.5); Mean Corpuscular Volume 72.9 fL (83.0-100.0); Mean Platelet Volume 11.1 fL (9.4-12.4); Monocytes # 0.9 K/mcL (0.0-1.3); Neutrophils # 6.7 K/mcL (1.6-8.9); Platelet Count 276 K/mcL (140-400); Red Blood Count 4.13 M/mcL (3.82-4.97); Red Cell Distribution Width 18.2 % (11.5-14.5); Segmented Neutrophils % 65.4 %
[2016-10-26 06:26] LABS: BUN/Creatinine Ratio 13 (6-26); Blood Urea Nitrogen 10 mg/dL (7-20); Calcium 8.2 mg/dL (8.6-10.8); Carbon Dioxide 27 mEq/L (19-29); Chloride 101 mEq/L (98-109); Glucose 229 mg/dL (70-99); Magnesium 1.7 mg/dL (1.6-2.6); Osmolality,Calculated 286 (280-300); Phosphorous 4.3 mg/dL (2.3-4.7); Potassium 3.1 mEq/L (3.5-4.5); Sodium 135 mEq/L (136-145); eGFR For African Americans > 60 (> 60); eGFR For Non-African Americans > 60 (> 60)
[2016-10-26] MEDS: Insulin LISPRO 300 UNITS/3 ML VIAL SQ SCH ×6 (08:57→16:51)
[2016-10-26] MEDS: Losartan/HCTZ 50-12.5 TABLET PO SCH (09:03)
[2016-10-26] MEDS: Magnesium Sulfate 2 GM in D5% in Water 100 ML IVPB PRN (09:05)
[2016-10-26] MEDS: Insulin DETEMIR 100 UNIT/ML X5UNITS SQ SCH (09:46)
[2016-10-26] MEDS ORDERED: Insulin DETEMIR 100 UNIT/ML X5UNITS SQ ONE (10:02)
[2016-10-26] MEDS: Ibuprofen 600 MG TABLET PO PRN ×2 (12:48→22:14)
--- NOTE | 2016-10-26 13:54 | Internal Med Progress Note ---
Date of Encounter: 10/24/16 Time of Encounter: 12:45 - Assessment and plan (1) Diabetes mellitus Current Visit: Yes Status: Acute Assessment and plan: Newly diagnosed DM during this hospitalization Noted to be persistently hyperglycemic Required 60units of additional insulin coverage in the last 24hours. Levemir increased to 58units qd Increased Lispro to 13units SQ TIDAC unit educator consultation appreciated HbA1C: 11.9 ADA diet Sliding scale insulin algorithm Will closely monitor fingerstick and blood glucose Qualifiers: Diabetes mellitus type: other specified (including CANDELARIA) Diabetes mellitus complication status: with unspecified complications Diabetes mellitus care home insulin use: without care home use Qualified Code(s): E13.8 - Other specified diabetes mellitus with unspecified complications (2) DKA (diabetic ketoacidoses) Current Visit: Yes Status: Resolved Assessment and plan: DKA resolved Qualifiers: Diabetes mellitus type: type 1 Diabetes mellitus complication detail: without coma Qualified Code(s): E10.10 - Type 1 diabetes mellitus with ketoacidosis without coma (3) KAILEE (acute kidney injury) Current Visit: Yes Status: Resolved Assessment and plan: Resolved will continue to monitor (4) Metabolic acidosis Current Visit: Yes Status: Resolved Assessment and plan: Likely secondary to DKA, resolved at this time (5) Rheumatoid arthritis Current Visit: Yes Status: Chronic Assessment and plan: Continue home medications Qualifiers: Rheumatoid arthritis location: unspecified site Rheumatoid factor presence : unspecified presence Qualified Code(s): M06.9 - Rheumatoid arthritis, unspecified (6) DVT prophylaxis Current Visit: Yes Status: Acute Assessment and plan: Heparin SQ (7) Hypokalemia Current Visit: Yes Status: Acute Assessment and plan: K supplemented continue to monitor electrolytes and replace as needed - Subjective Interval history: Patient is a 41y/o female admitted for hyperglycemia secondary to DKA. Seen and examined at bedside. Sitting comfortably in bed and denies any discomfort at this time. She is noted to have persistently elevated blood glucose. Dietary compliance is advised and diabetic education is provided. Discharge pending better control of BG. Noted to require additional 60units of insulin coverage in the last 24hours. - Constitutional Vitals: Temp Pulse Resp BP Pulse Ox 98.1 F 91 14 144/92 98 10/26/16 11:13 10/26/16 11:45 10/26/16 11:13 10/26/16 11:13 10/26/16 05:36 General appearance: Present: A&O X 3, no acute distress, obese, answers questions appropriately - Head Head exam: Present: atraumatic, normocephalic - Eye Eye exam: Present: normal appearance, conjuntiva pink, sclera anicteric - Respiratory Respiratory exam: Present: CTAB. Absent: accessory muscle use, rales, rhonchi, wheezes - Cardiovascular Cardiovascular exam: Present: RRR, +S1, +S2. Absent: diastolic murmur, gallop, rubs, systolic murmur - GI/Abdominal GI/Abdominal exam: Present: normal bowel sounds, soft, no peritoneal signs. Absent: distended, tenderness - Extremities Exam Extremities exam: Present: warm, radial pulses palpable and symetrical. Absent : calf tenderness, cyanotic, pedal edema - Neurological Exam Neurological exam: Present: alert, oriented X3 - Psychiatric Psychiatric exam: Present: normal affect, normal mood Internal Medicine: Result - Labs CBC & Chem 7: 10/26/16 05:38 10/26/16 05:38 Labs: Short CBC 10/26/16 Range/Units 05:38 WBC 10.2 (4.3-11.1) K/mcL Hgb 9.9 L (11.5-15.4) g/dL Hct 30.1 L (35.3-44.9) % Plt Count 276 (140-400) K/mcL Neutrophils # 6.7 (1.6-8.9) K/mcL BMP 10/26/16 05:38 Sodium 135 L Potassium 3.1 L Chloride 101 Carbon Dioxide 27 BUN 10 Creatinine 0.77 Glucose 229 H Calcium 8.2 L - ABG Interpretation ABG results: ABG ABG pH 7.34 pH Units (7.32-7.45) 10/23/16 19:35 ABG pCO2 23 mmHg (35-45) L 10/23/16 19:35 ABG pO2 94 mmHg (85-104) 10/23/16 19:35 ABG O2 Saturation 97 % (95-98) 10/23/16 19:35 PT/INR, D-dimer D-Dimer 530 ng/mLFEU (0-500) H 10/23/16 18:47 Consult Discharge Plan - Plan Referrals: Dago Milton DO [Primary Care Provider] - 11/01/16 12:00 pm ()
[2016-10-26] MEDS: Famotidine 20 MG TABLET PO SCH (16:50)
[2016-10-26 17:03] LABS: Potassium 2.9 mEq/L (3.5-4.5)
[2016-10-27] MEDS: Insulin LISPRO 300 UNITS/3 ML VIAL SQ SCH ×5 (00:38→11:58)
[2016-10-27] MEDS: *HR* Heparin 5,000 UNIT/ML VIAL SQ SCH (06:23)
[2016-10-27 07:33] VITALS: BP 134/85
[2016-10-27 07:44] LABS: Potassium 3.5 mEq/L (3.5-4.5)
[2016-10-27] MEDS ORDERED: Magnesium Sulfate 2 GM in D5% in Water 100 ML IVPB ONE (07:45)
[2016-10-27] MEDS ORDERED: Insulin DETEMIR 100 UNIT/ML X5UNITS SQ SCH ×3 (08:00)
[2016-10-27 08:18] LABS: Basophils # 0.1 K/mcL (0.0-0.2); Basophils % 0.6 %; Eosinophils # 0.2 K/mcL (0.0-0.6); Eosinophils % 2.4 %; Hematocrit 35.6 % (35.3-44.9); Hemoglobin 11.1 g/dL (11.5-15.4); Immature Granulocytes % 0.4 % (0-4); Lymphocytes % 24.8 %; Mean Corpuscular HGB Conc 31.2 g/dL (31.6-35.5); Mean Corpuscular Hemoglobin 23.2 pg (28.0-33.3); Mean Corpuscular Volume 74.3 fL (83.0-100.0); Monocytes % 12.3 %; Neutrophils # 4.9 K/mcL (1.6-8.9); Platelet Count 320 K/mcL (140-400); Red Blood Count 4.79 M/mcL (3.82-4.97); Red Cell Distribution Width 18.5 % (11.5-14.5); Segmented Neutrophils % 59.5 %
[2016-10-27] MEDS: Famotidine 20 MG TABLET PO SCH (08:18)
[2016-10-27] MEDS: Losartan/HCTZ 50-12.5 TABLET PO SCH (08:18)
[2016-10-27 08:31] LABS: BUN/Creatinine Ratio 13 (6-26); Blood Urea Nitrogen 9 mg/dL (7-20); Calcium 8.6 mg/dL (8.6-10.8); Carbon Dioxide 24 mEq/L (19-29); Chloride 100 mEq/L (98-109); Glucose 174 mg/dL (70-99); Osmolality,Calculated 287 (280-300); Phosphorous 4.6 mg/dL (2.3-4.7); Sodium 137 mEq/L (136-145); eGFR For African Americans > 60 (> 60); eGFR For Non-African Americans > 60 (> 60)
--- NOTE | 2016-10-27 09:18 | Discharge Summary ---
Date of Encounter: 10/27/16 Time of Encounter: 09:13 - Discharge Diagnosis (1) Diabetes mellitus Priority: Primary Status: Acute Qualifiers: Diabetes mellitus type: other specified (including CANDELARIA) Diabetes mellitus complication status: with unspecified complications Diabetes mellitus throat cutter insulin use: without throat cutter use Qualified Code(s): E13.8 - Other specified diabetes mellitus with unspecified complications (2) DKA (diabetic ketoacidoses) Priority: Primary Status: Resolved Qualifiers: Diabetes mellitus type: type 1 Diabetes mellitus complication detail: without coma Qualified Code(s): E10.10 - Type 1 diabetes mellitus with ketoacidosis without coma (3) KAILEE (acute kidney injury) Priority: Secondary Status: Resolved (4) Metabolic acidosis Priority: Secondary Status: Resolved (5) Rheumatoid arthritis Priority: Secondary Status: Chronic Qualifiers: Rheumatoid arthritis location: unspecified site Rheumatoid factor presence : unspecified presence Qualified Code(s): M06.9 - Rheumatoid arthritis, unspecified (6) DVT prophylaxis Priority: Secondary Status: Acute (7) Hypokalemia Priority: Secondary Status: Resolved - Discharge Medications Prescriptions: Insulin ASPART [Novolog Flexpen] 13 unit SQ TIDAC #10 [email or web address] Insulin DETEMIR [Levemir Flextouch] 50 unit SQ DAILY #10 insuln.pen Home Medications: Adalimumab [Humira] 40 mg SQ Q2W 10/23/16 [History] Albuterol Sulfate [Ventolin Hfa] 2 puff IH Q4H PRN 10/23/16 [History] Fluticasone Propionate Nasal [Flonase] 50 mcg NS BID PRN 10/23/16 [History] Losartan/Hydrochlorothiazide [Hyzaar 100-25 Tablet] 1 each PO DAILY 10/23/16 [ History] Metoprolol [Lopressor] 25 mg PO DAILY 10/23/16 [History] Montelukast [Singulair] 10 mg PO HS 10/23/16 [History] Insulin ASPART [Novolog Flexpen] 13 unit SQ TIDAC #10 insuln.pen 10/27/16 [Rx] Insulin DETEMIR [Levemir Flextouch] 50 unit SQ DAILY #10 insuln.pen 10/27/16 [Rx ] Allergies/Adverse Reactions: Allergies shellfish derived Allergy (Verified 10/23/16 14:31) Swelling of Lip/Tongue/Throat Sulfa (Sulfonamide Antibiotics) Allergy (Verified 10/23/16 14:30) Hives Date of admission: 10/24/16 01:54 Primary care physician: Shaheed Gorman Consults: 10/24/16 07:15 Consult to Emergency Management Coordinator [CONS] Routine Comment: DKA NEW DIABETIC Discharging clinician: Lena Braden Anticipated date of discharge: 10/27/16 - Patient Status Disposition: Home, Self-Care Condition: Good Functional capacity at discharge: independent ambulation Overall status at discharge: patient is back to baseline - Discharge Instructions Follow Up With: Dago Milton DO [Primary Care Provider] - 11/01/16 12:00 pm () Additional Instructions: Please follow up with your primary care physician on Saturday. Please inform your PCP about your newly diagnosed DM with HbA1C of 11.9. Please closely monitor your fingerstick glucose at home. Check your fingerstick glucose before each meal, fasting, and at bedtime. Please keep a log of these numbers and take it with you to your primary care physician's appointment. Your insulin regimen will be altered depending on these numbers. Your goal blood glucose is as follows: Fasting -less than 140, Two hours after meals ( postprandial)- less than 180. Please contact your PCP if you continuously have elevated glucose above 200. Please adhere to a diabetic diet. Resume all your home medications as prescribed by your primary care physician. All your insulin prescriptions have been called to your preferred [facility] pharmacy. - Diet and Activity Activity: resume usual activities as tolerated Diet: diabetic diet Hospital course: Ms. Mercedes is a 41 year old female with PMH of hypertension, RA, asthma who was admitted for management DKA. Patient was newly diagnosed with DM during this hospitalization. She was started on insulin drip as per DKA protocol to which responded well. Her discharge was delayed due to her persistent hyperglycemia requiring gradual increase in insulin therapy. Patient was also provided with diabetic education and she demonstrates understanding of her diagnosis and is comfortable with herself administering insulin at home. Patient is currently hemodynamically stable and will be discharged to home on insulin therapy. She is to follow up with her PCP after discharge. Patient demonstrates understanding of her diagnosis and agrees with the discharge care and plan. - Time Spent with Patient Total time spent providing and/or coordinating discharge services: Greater than 30 minutes - Constitutional Vitals: Temp Pulse Resp BP Pulse Ox 98.3 F 91 16 134/85 98 10/27/16 07:27 10/27/16 07:27 10/27/16 07:27 10/27/16 07:27 10/27/16 07:27 General appearance: Present: A&O X 3, no acute distress, obese, answers questions appropriately - Head Head exam: Present: atraumatic, normocephalic - Eye Eye exam: Present: normal appearance, conjuntiva pink, sclera anicteric - Respiratory Respiratory exam: Present: CTAB. Absent: accessory muscle use, rales, rhonchi, wheezes - Cardiovascular Cardiovascular exam: Present: RRR, +S1, +S2. Absent: diastolic murmur, gallop, rubs, systolic murmur - GI/Abdominal GI/Abdominal exam: Present: normal bowel sounds, soft, no peritoneal signs. Absent: distended, tenderness - Extremities Exam Extremities exam: Present: warm, radial pulses palpable and symetrical. Absent : calf tenderness, cyanotic, pedal edema - Neurological Exam Neurological exam: Present: alert, oriented X3 - Psychiatric Psychiatric exam: Present: normal affect, normal mood
== END 2016-10-27 12:59 | disposition home or self-care (01) | DRG 638 ==
LOC: 2NNU 14:19 → EMEROO 14:19 → 2NNU 10-24 00:13
PROVIDERS: ADMIT Internal Medicine; ATTEND Internal Medicine